=== PATIENT | female | born 1985 | race Caucasian/White ===

== ENCOUNTER 2018-11-19 11:15 | Outpatient (CLI) | payer OTHER ==
[2018-11-19] MEDS: LACTATED RINGER'S 1,000 ML IV ×2 (12:01→16:11)
[2018-11-19 12:16] LABS: ADD MAN DIFF? NO
[2018-11-19 12:19] LABS: WHITE BLOOD COUNT 7.3 10^3/ul (4.8-10.8)
[2018-11-19 12:19] LABS: BASOPHIL # 0.1 10^3/ul (0.0-0.1); BASOPHILS % 0.7 % (0.0-2.0); EOSINOPHILS # 0.1 10^3/ul (0.0-0.5); EOSINOPHILS % 1.5 % (0.0-7.0); HEMATOCRIT 36.2 % (37.0-47.0); HEMOGLOBIN 12.2 g/dl (12.0-16.0); LYMPHOCYTES # 1.4 10^3/ul (0.8-2.9); LYMPHOCYTES % 19.6 % (15.0-51.0); MEAN CORPUSCULAR HEMOGLOBIN 30.3 pg (29.0-33.0); MEAN CORPUSCULAR HGB CONC 33.7 g/dl (32.0-37.0); MEAN CORPUSCULAR VOLUME 89.8 fl (82.0-101.0); MEAN PLATELET VOLUME 9.9 fl (7.4-10.4); MONOCYTE # 0.5 10^3/ul (0.3-0.9); MONOCYTES % 6.6 % (0.0-11.0); NEUTROPHIL # 5.2 10^3/ul (1.6-7.5); NEUTROPHILS % 70.8 % (39.0-77.0); PLATELET COUNT 250 10^3/UL (140-415); RED BLOOD COUNT 4.03 10^6/ul (4.20-5.40); RED CELL DISTRIBUTION WIDTH 13.3 % (11.5-14.5)
[2018-11-19 12:38] LABS: ALANINE AMINOTRANSFERASE 22 IU/L (13-69); ALBUMIN/GLOBULIN RATIO 1.14; ALKALINE PHOSPHATASE 74 IU/L (42-121); ANION GAP 9 (5-13); ASPARTATE AMINO TRANSFERASE 24 IU/L (15-46); BILIRUBIN,INDIRECT 0.6 mg/dl (0-1.1); BILIRUBIN,TOTAL 0.6 mg/dl (0.2-1.3); BLOOD UREA NITROGEN 9 mg/dl (7-20); CALCIUM 9.2 mg/dl (8.4-10.2); CARBON DIOXIDE 24 mmol/L (21-31); CHLORIDE 104 mmol/L (97-110); CREATININE 0.46 mg/dl (0.44-1.00); Estimated GFR > 60 mL/min (>60); GLUCOSE 79 mg/dl (70-220); POTASSIUM 3.6 mmol/L (3.5-5.1); SODIUM 137 mmol/L (135-144); TOTAL PROTEIN 7.5 g/dl (6.1-8.1); URIC ACID 5.6 mg/dl (3.1-7.9)
[2018-11-19 12:39] LABS: INR 0.92; PROTIME 12.5 Sec (11.9-14.9)
[2018-11-19 12:40] LABS: PARTIAL THROMBOPLASTIN TIME 25.6 Sec (23.0-35.0)
[2018-11-19 12:47] LABS: ADD UMIC YES; UR ASCORBIC ACID 20 mg/dL (NEGATIVE); UR BILIRUBIN (Dip) NEGATIVE (NEGATIVE); UR BLOOD (Dip) NEGATIVE (NEGATIVE); UR CLARITY SLIGHTLY CLOUDY (CLEAR); UR COLOR YELLOW (YELLOW); UR GLUCOSE (Dip) NEGATIVE (NEGATIVE); UR KETONES (Dip) NEGATIVE (NEGATIVE); UR LEUKOCYTE ESTERASE (Dip) TRACE Leu/ul (NEGATIVE); UR MUCUS FEW /HPF (NONE SEEN); UR NITRITE (Dip) NEGATIVE (NEGATIVE); UR RBC 1 /HPF (0-5); UR SPECIFIC GRAVITY (Dip) 1.021 (1.003-1.030); UR SQUAMOUS EPITHELIAL CELL MODERATE /HPF (FEW); UR TOTAL PROTEIN (Dip) NEGATIVE (NEGATIVE); UR UROBILINOGEN (Dip) NEGATIVE (NEGATIVE); UR WBC 4 /HPF (0-5)
[2018-11-19] MEDS: CEFAZOLIN 2 GM/50 ML (PMX) 50 ML IVPB (15:17)
[2018-11-19] MEDS: BETAMET NA PHOS/AC(6 MG/ML) 2 ML INJ SYG IM (16:23)
== END 2018-11-19 17:34 | disposition home or self-care (01) ==
LOC: OBT 11:15 → L-D 11:15 → OBT 17:34
DX: O62.9 Abnormality of forces of labor, unspecified (principal); Z3A.23 23 weeks gestation of pregnancy
CPT/HCPCS: 76817; 76818; 80053; 81001; 82731; 84560; 85025; 85610; 85730; 96360

== ENCOUNTER 2019-02-14 09:29 | Outpatient (CLI) | payer OTHER | END 2019-02-14 11:20 | disposition home or self-care (01) | LOC: OBT 09:29 → L-D 09:29 → OBT 11:20 | DX: O62.9 Abnormality of forces of labor, unspecified (principal); Z3A.35 35 weeks gestation of pregnancy | CPT/HCPCS: 76818 ==

== ENCOUNTER 2019-02-28 09:01 | Inpatient (IN) | payer OTHER ==
[2019-02-28 09:37] LABS: ADD UMIC YES; UR ASCORBIC ACID NEGATIVE (NEGATIVE); UR BACTERIA FEW /HPF (NONE SEEN); UR BILIRUBIN (Dip) NEGATIVE (NEGATIVE); UR BLOOD (Dip) 1+ mg/dL (NEGATIVE); UR CLARITY SLIGHTLY CLOUDY (CLEAR); UR COLOR STRAW (YELLOW); UR GLUCOSE (Dip) NEGATIVE (NEGATIVE); UR KETONES (Dip) NEGATIVE (NEGATIVE); UR LEUKOCYTE ESTERASE (Dip) 2+ Leu/ul (NEGATIVE); UR NITRITE (Dip) NEGATIVE (NEGATIVE); UR RBC 1 /HPF (0-5); UR SPECIFIC GRAVITY (Dip) 1.006 (1.003-1.030); UR SQUAMOUS EPITHELIAL CELL FEW /HPF (FEW); UR TOTAL PROTEIN (Dip) NEGATIVE (NEGATIVE); UR UROBILINOGEN (Dip) NEGATIVE (NEGATIVE); UR WBC 9 /HPF (0-5)
[2019-02-28] MEDS: LACTATED RINGER'S 1,000 ML IV ×2 (10:40→18:55)
[2019-02-28] MEDS: CEFAZOLIN 2 GM/50 ML (PMX) 50 ML IVPB ×2 (11:46→17:58)
[2019-03-01] MEDS: CEFAZOLIN 2 GM/50 ML (PMX) 50 ML IVPB ×4 (00:13→17:50)
[2019-03-01] MEDS: LACTATED RINGER'S 1,000 ML IV ×3 (03:16→21:00)
[2019-03-01] MEDS: FERROUS SULFATE (EC) 325 MG TAB PO (09:34)
[2019-03-01] MEDS: PRENATAL VITAMIN PO (09:34)
[2019-03-02] MEDS: CEFAZOLIN 2 GM/50 ML (PMX) 50 ML IVPB ×2 (00:01→06:04)
[2019-03-02] MEDS: LACTATED RINGER'S 1,000 ML IV ×3 (05:05→21:32)
[2019-03-02 11:12] LABS: ADD MAN DIFF? NO
[2019-03-02 11:22] LABS: BASOPHILS % 0.3 % (0.0-2.0); EOSINOPHILS # 0.1 10^3/ul (0.0-0.5); EOSINOPHILS % 1.3 % (0.0-7.0); HEMATOCRIT 38.6 % (37.0-47.0); HEMOGLOBIN 12.8 g/dl (12.0-16.0); LYMPHOCYTES # 1.3 10^3/ul (0.8-2.9); LYMPHOCYTES % 17.2 % (15.0-51.0); MEAN CORPUSCULAR HEMOGLOBIN 30.4 pg (29.0-33.0); MEAN CORPUSCULAR HGB CONC 33.2 g/dl (32.0-37.0); MEAN CORPUSCULAR VOLUME 91.7 fl (82.0-101.0); MEAN PLATELET VOLUME 10.6 fl (7.4-10.4); MONOCYTE # 0.6 10^3/ul (0.3-0.9); MONOCYTES % 7.7 % (0.0-11.0); NEUTROPHIL # 5.5 10^3/ul (1.6-7.5); NEUTROPHILS % 72.3 % (39.0-77.0); PLATELET COUNT 184 10^3/UL (140-415); RED BLOOD COUNT 4.21 10^6/ul (4.20-5.40); RED CELL DISTRIBUTION WIDTH 14.5 % (11.5-14.5)
[2019-03-02 11:22] LABS: WHITE BLOOD COUNT 7.5 10^3/ul (4.8-10.8)
[2019-03-02] MEDS: FERROUS SULFATE (EC) 325 MG TAB PO (11:42)
[2019-03-02] MEDS: PRENATAL VITAMIN PO (11:42)
[2019-03-02 11:46] LABS: ALANINE AMINOTRANSFERASE 23 IU/L (13-69); ALBUMIN 3.7 g/dl (3.3-4.9); ALBUMIN/GLOBULIN RATIO 1.15; ALKALINE PHOSPHATASE 197 IU/L (42-121); ANION GAP 6 (5-13); ASPARTATE AMINO TRANSFERASE 48 IU/L (15-46); BILIRUBIN,INDIRECT 0.6 mg/dl (0-1.1); BILIRUBIN,TOTAL 0.6 mg/dl (0.2-1.3); BLOOD UREA NITROGEN 10 mg/dl (7-20); CALCIUM 9.5 mg/dl (8.4-10.2); CARBON DIOXIDE 25 mmol/L (21-31); CHLORIDE 108 mmol/L (97-110); CREATININE 0.72 mg/dl (0.44-1.00); Estimated GFR > 60 mL/min (>60); GLUCOSE 85 mg/dl (70-220); POTASSIUM 4.4 mmol/L (3.5-5.1); SODIUM 139 mmol/L (135-144); TOTAL PROTEIN 6.9 g/dl (6.1-8.1)
[2019-03-02] MEDS ORDERED: LACTATED RINGER'S 1,000 ML IV ×2 (12:33→13:32)
[2019-03-02] MEDS ORDERED: BUTORPHANOL 2 MG INJ IV ×2 (13:00)
[2019-03-02] MEDS ORDERED: METHYLERGONOVINE 0.2 MG INJ IM (13:00)
[2019-03-02] MEDS ORDERED: MISOPROSTOL 200 MCG TAB PR (13:00)
[2019-03-02] MEDS ORDERED: CARBOPROST 250 MCG INJ IM (13:00)
[2019-03-02] MEDS ORDERED: LIDOCAINE 1% (MPF) 30 ML INJ INJ (13:00)
[2019-03-02] MEDS ORDERED: OXYTOCIN 30 UNITS/LR 500 ML IV ×2 (13:00)
[2019-03-02 13:31] LABS: HEPATITIS B SURFACE ANTIGEN NEGATIVE (NEGATIVE)
[2019-03-02 13:49] LABS: PROTIME 12.3 Sec (11.9-14.9)
[2019-03-02 13:50] LABS: PARTIAL THROMBOPLASTIN TIME 26.5 Sec (23.0-35.0)
[2019-03-02] MEDS ORDERED: IBUPROFEN 600 MG TAB PO (14:00)
[2019-03-02] MEDS: MISOPROSTOL 50 MCG CAPSULE PO ×3 (15:31→22:30)
[2019-03-02] MEDS: AMPICILLIN 2 GM/NS (PMX) 100 ML IV (17:04)
[2019-03-02 19:32] LABS: RAPID PLASMA REAGIN NONREACTIVE (NR)
[2019-03-02] MEDS: AMPICILLIN 1 GM/NS (PMX) 50 ML IV ×2 (20:24→21:31)
[2019-03-02] MEDS ORDERED: FENTAnyl 2MCG/ML-ROPIV 0.2% 100 ML (22:52)
[2019-03-03] MEDS: MISOPROSTOL 50 MCG CAPSULE PO ×2 (01:00→05:00)
[2019-03-03] MEDS: AMPICILLIN 1 GM/NS (PMX) 50 ML IV ×4 (01:00→12:52)
[2019-03-03] MEDS: LACTATED RINGER'S 1,000 ML IV ×2 (02:11→07:37)
[2019-03-03] MEDS: OXYTOCIN 30 UNITS/LR 500 ML IV ×4 (03:40→14:34)
[2019-03-03] MEDS: PRENATAL VITAMIN PO (09:00)
[2019-03-03] MEDS: FERROUS SULFATE (EC) 325 MG TAB PO (09:00)
[2019-03-03] MEDS: FENTAnyl 2MCG/ML-ROPIV 0.2% 100 ML BAG EPI (09:22)
[2019-03-03] MEDS ORDERED: NALOXONE (0.4 MG/ML) INJ IV (09:30)
[2019-03-03] MEDS: IBUPROFEN 600 MG TAB PO (14:00)
[2019-03-03] MEDS ORDERED: MAGNESIUM SULFATE 4 GM/100 ML 100 ML (14:15)
[2019-03-03] MEDS ORDERED: MAGNESIUM SULFATE 2 GM/50 ML 50 ML IVPB ×4 (14:30→19:00)
[2019-03-03] MEDS: MAGNESIUM SULFATE 4 GM/100 ML 100 ML IVPB (14:33)
[2019-03-03] MEDS: LACTATED RINGER'S 1,000 ML IV* ×2 (14:34→22:54)
[2019-03-03] MEDS ORDERED: MISOPROSTOL 200 MCG TAB PR (15:00)
[2019-03-03] MEDS ORDERED: OXYTOCIN 30 UNITS/LR 500 ML IV (15:00)
[2019-03-03] MEDS ORDERED: CARBOPROST 250 MCG INJ IM (15:00)
[2019-03-03] MEDS ORDERED: METHYLERGONOVINE 0.2 MG INJ IM (15:00)
[2019-03-03] MEDS ORDERED: ZOLPIDEM 5 MG TAB PO (15:00)
[2019-03-03] MEDS ORDERED: LANOLIN HPA 1 PKT TOP (15:00)
[2019-03-03] MEDS ORDERED: DIPHENHYDRAMINE 25 MG CAP PO (15:00)
[2019-03-03] MEDS: MAGNESIUM SULFATE 20 GM/500 ML 500 ML IV (15:14)
[2019-03-03] MEDS: IBUPROFEN 800 MG TAB PO ×2 (18:06→23:57)
[2019-03-03] MEDS: CALCIUM GLUCONATE 10% 1 GM in DEXTROSE 5% 100 ML IVPB (19:14)
[2019-03-03 19:31] LABS: MAGNESIUM 4.5 mg/dl (1.7-2.5)
[2019-03-03] MEDS: ACETAMINOPHEN 325 MG TAB PO (22:14)
[2019-03-04] MEDS: MAGNESIUM SULFATE 20 GM/500 ML 500 ML IV ×2 (01:21→11:19)
[2019-03-04 01:34] LABS: MAGNESIUM 5.1 mg/dl (1.7-2.5)
[2019-03-04] MEDS: HYDROCODONE/APAP (5/325) TAB PO ×2 (02:03→19:17)
[2019-03-04] MEDS: IBUPROFEN 800 MG TAB PO ×3 (05:59→17:29)
[2019-03-04] MEDS: LACTATED RINGER'S 1,000 ML IV* (06:34)
[2019-03-04] MEDS: BENZOCAINE 20% 56 ML SPRAY TOP (08:15)
[2019-03-04] MEDS: WITCH HAZEL/GLYCERIN PAD PR (08:16)
[2019-03-04 08:37] LABS: ADD MAN DIFF? NO
[2019-03-04 08:43] LABS: WHITE BLOOD COUNT 8.6 10^3/ul (4.8-10.8)
[2019-03-04 08:43] LABS: BASOPHILS % 0.4 % (0.0-2.0); EOSINOPHILS # 0.2 10^3/ul (0.0-0.5); EOSINOPHILS % 2.1 % (0.0-7.0); HEMATOCRIT 33.8 % (37.0-47.0); HEMOGLOBIN 11.3 g/dl (12.0-16.0); LYMPHOCYTES % 22.9 % (15.0-51.0); MEAN CORPUSCULAR HEMOGLOBIN 30.5 pg (29.0-33.0); MEAN CORPUSCULAR HGB CONC 33.4 g/dl (32.0-37.0); MEAN CORPUSCULAR VOLUME 91.1 fl (82.0-101.0); MEAN PLATELET VOLUME 10.4 fl (7.4-10.4); MONOCYTE # 0.6 10^3/ul (0.3-0.9); MONOCYTES % 6.4 % (0.0-11.0); NEUTROPHIL # 5.8 10^3/ul (1.6-7.5); NEUTROPHILS % 67.5 % (39.0-77.0); PLATELET COUNT 175 10^3/UL (140-415); RED BLOOD COUNT 3.71 10^6/ul (4.20-5.40); RED CELL DISTRIBUTION WIDTH 14.3 % (11.5-14.5)
[2019-03-04 09:26] LABS: MAGNESIUM 5.8 mg/dl (1.7-2.5)
[2019-03-04 14:47] LABS: MAGNESIUM 5.6 mg/dl (1.7-2.5)
[2019-03-05] MEDS: IBUPROFEN 800 MG TAB PO ×4 (00:16→18:30)
[2019-03-05] MEDS: HYDROCODONE/APAP (5/325) TAB PO ×4 (00:21→21:10)
[2019-03-05] MEDS: BENZOCAINE 20% 56 ML SPRAY TOP (00:22)
[2019-03-05] MEDS: WITCH HAZEL/GLYCERIN PAD PR (00:22)
[2019-03-05] MEDS: MEASLES,MUMPS,RUBELLA VACCINE INJ SC* (09:00)
[2019-03-05] MEDS: VARICELLA VACCINE LIVE/PF 1,350 UNIT/0.5 ML ML SC* (09:00)
[2019-03-05] MEDS: DIPHTH/TET/ACEL PERTUSS (ADULT) 0.5 ML VIAL IM* (10:12)
[2019-03-05] MEDS: LABETALOL 100 MG TAB PO (20:18)
[2019-03-05] MEDS: MAGNESIUM HYDROXIDE 30ML CUP PO (20:18)
[2019-03-06] MEDS: IBUPROFEN 800 MG TAB PO ×4 (00:12→17:38)
[2019-03-06] MEDS: HYDROCODONE/APAP (5/325) TAB PO ×3 (04:52→22:42)
[2019-03-06] MEDS: WITCH HAZEL/GLYCERIN PAD PR ×2 (05:16→22:43)
[2019-03-06] MEDS: ACETAMINOPHEN 325 MG TAB PO (08:05)
[2019-03-06] MEDS: LABETALOL 100 MG TAB PO ×2 (09:59→20:38)
[2019-03-06] MEDS: SENNA/DOCUSATE NA (8.6MG/50MG) TAB PO (20:38)
[2019-03-07] MEDS: IBUPROFEN 800 MG TAB PO ×3 (00:40→12:00)
[2019-03-07] MEDS: LABETALOL 100 MG TAB PO (09:39)
== END 2019-03-07 12:10 | disposition home or self-care (01) | DRG 807 ==
LOC: OBT 09:01 → L-D 03-02 13:21 → PP1 03-03 15:43 → L-D 09:01 → OBT 09:43 → L-D 09:32 → PP1 21:51
PROC: 10E0XZZ Delivery of Products of Conception, External Approach (ICD-10-PCS; principal; 2019-03-03)
PROC: 0HQ9XZZ Repair Perineum Skin, External Approach (ICD-10-PCS; 2019-03-03)
DX: O75.3 Other infection during labor (principal); O13.4 Gestational [pregnancy-induced] hypertension without significant proteinuria, complicating childbirth; O70.0 First degree perineal laceration during delivery; Z3A.37 37 weeks gestation of pregnancy; Z37.0 Single live birth
CPT/HCPCS: 62322; 76815; 76818; 80053; 81001; 83735; 85025; 85610; 85730; 86592; 86850; 86900; 86901; 87086; 87340; 88307; 90715; 90716